=== PATIENT | male | born 1965 | race Caucasian/White ===

== ENCOUNTER → 2018-01-15 | Day surgery (SDC) | payer OTHER ==
[~2018-01-15] MED LIST: GLIM2TAB2 PO; INSU100C SQ; INSU100I13 SQ; INSU100V SQ; IV RINGERS,LACTATED 1000ML 1,000 ML IV SCH; LIDOCAINE 1% PF 2 ML VIAL. ID PRN; METF10007 PO; MIDAZOLAM HCL/PF 2 MG/2 ML VIAL. IV PRN; PROPOFOL 20 ML IV ONE; SIMV20TA3 PO; fentaNYL PF VIAL 100 MCG/2 ML VIAL IV PRN
--- NOTE | 2018-01-15 09:47 | PDOC1 ---
HISTORY & PHYSICAL H&P Arsenio Hernandez [id number] 1965 01/09/2018 11:00 AM 04/09 [facility], [facility] OUR PATIENTS COME FIRST [address] [place] [address] Ph. [phone] Patient: Arsenio Hernandez Date of : 1965 Date: 01/09/2018 11:00 AM Visit Type: Consult This 52 year old male presents for Screening colonoscopy. History of Present Illness: 1. Screening colonoscopy No prior screening. Denies risk factors. Pertinent negatives include abdominal pain, change in bowel habits, change in stool caliber, constipation, decreased appetite, diarrhea, melena, nausea, rectal bleeding, vomiting, weight gain and weight loss. Additional information: No family history of colon cancer , No family history of Crohn's/colitis and No NSAID/ASA use. INTAKE COMMENTS: Intake Comments: patient states he is here for a colonoscopy PAST MEDICAL/SURGICAL HISTORY (Detailed) Disease/disorder Onset Date Management Date Comments Hernia repair Diabetes type 2 gallbladder High cholesterol Hypertension Family History (Detailed) Relationship Family Member Name Age at Condition Onset Age Cause of Father Diabetes mellitus type 2 N Mother Hypertension N Social History: (Detailed) Preferred language is Slovak. Tobacco use status: Ex-cigarette smoker. Smoking status: Former smoker. ALCOHOL There is a history of alcohol use. Type: Wine. 1 drink consumed socially. Last alcoholic drink was last month. CAFFEINE The patient uses caffeine: coffee and soda. - 32 oz a day. Medications (active prior to today) Medication Name Sig Description Start Date Stop Date Refilled Rx Elsewhere glimepiride 4 mg tablet take 1 tablet by oral route 2 times every day 2017 N metformin 1,000 mg tablet take 1 tablet by oral route 2 times every day with morning and evening meals 10/31/2017 N lisinopril 10 mg tablet take 1 tablet by oral route every day 10/31/2017 N simvastatin 20 mg tablet take 1 tablet by oral route every day in the evening 10/31/2017 N Aspir-81 81 mg tablet,delayed release take 1 tablet by oral route every day N Neosporin (ono-fnc-iigag) 3.5 mg-400 unit-5,000 unit/gram top ointment tid 10/31 N BD Ultra-Fine Tami Pen Needle 32 gauge x 5/32" qid 11/14/2017 N Apidra SoloStar U-100 Insulin 100 unit/mL subcutaneous pen 10 u tid 12/14/2017 01/09/2018 01/09/2018 N Soliqua 100/33 100 unit-33 mcg/mL subcutaneous insulin pen inject by subcutaneous route as per insulin protocol 12/14/2017 01/09/2018 01/09/2018 N Riddle 5 mg-325 mg tablet take 1 tablet by oral route every 6 hours as needed for pain 12/14/2017 01/09/2018 01/09/2018 N Medication Reconciliation Medications reconciled today. Medication Reviewed Adherence Medication Name Sig Desc Elsewhere Status taking as directed glimepiride 4 mg tablet take 1 tablet by oral route 2 times every day N Verified taking as directed metformin 1,000 mg tablet take 1 tablet by oral route 2 times every day with morning and evening meals N Verified taking as directed lisinopril 10 mg tablet take 1 tablet by oral route every day N Verified taking as directed simvastatin 20 mg tablet take 1 tablet by oral route every day in the evening N Verified taking as directed Aspir-81 81 mg tablet,delayed release take 1 tablet by oral route every day N Verified taking as directed Neosporin (ref-lop-vqtpy) 3.5 mg-400 unit-5,000 unit/gram top ointment tid N Verified taking as directed BD Ultra-Fine Tami Pen Needle 32 gauge x 5/32" qid N Verified taking as directed Apidra SoloStar U-100 Insulin 100 unit/mL subcutaneous pen 10 u tid N Verified taking as directed Soliqua 100/33 100 unit-33 mcg/mL subcutaneous insulin pen inject by subcutaneous route as per insulin protocol N Verified taking as directed Riddle 5 mg-325 mg tablet take 1 tablet by oral route every 6 hours as needed for pain N Verified Medications (Added, Continued or Stopped today) Start Date Medication Directions PRN Status PRN Reason Instruction Stop Date 12/14/2017 Apidra SoloStar U-100 Insulin 100 unit/mL subcutaneous pen 10 u tid N 01/09/2018 01/09/2018 Apidra SoloStar U-100 Insulin 100 unit/mL subcutaneous pen 16 u tid N Kat saraviayoseph brand 10/31/2017 Aspir-81 81 mg tablet,delayed release take 1 tablet by oral route every day N 11/14/2017 BD Ultra-Fine Tami Pen Needle 32 gauge x 5/32" qid N 10/31/2017 glimepiride 4 mg tablet take 1 tablet by oral route 2 times every day N 10/31/2017 lisinopril 10 mg tablet take 1 tablet by oral route every day N 10/31/2017 metformin 1,000 mg tablet take 1 tablet by oral route 2 times every day with morning and evening meals N 10/31/2017 Neosporin (qsc-ygm-tahra) 3.5 mg-400 unit-5,000 unit/gram top ointment tid N 01/09/2018 Riddle 5 mg-325 mg tablet take 1 tablet by oral route every 6 hours as needed for pain N 12/14/2017 Riddle 5 mg-325 mg tablet take 1 tablet by oral route every 6 hours as needed for pain N 01/09/2018 10/31/2017 simvastatin 20 mg tablet take 1 tablet by oral route every day in the evening N 12/14/2017 Soliqua 100/33 100 unit-33 mcg/mL subcutaneous insulin pen inject by subcutaneous route as per insulin protocol N 01/09/2018 01/09/2018 Soliqua 100/33 100 unit-33 mcg/mL subcutaneous insulin pen inject by subcutaneous route as per insulin protocol 30 u at hs N Allergies: Ingredient Reaction (Severity) Medication Name Comment NO KNOWN ALLERGIES Review of Systems System Neg/Pos Details Constitutional Negative Chills, Fever, Malaise, Weight gain and Weight loss. ENMT Negative Sore throat. Eyes Negative Double vision. Respiratory Negative Dyspnea and Wheezing. Cardio Negative Chest pain and Irregular heartbeat/palpitations. GI Positive See HPI. GI Negative Abdominal pain, Change in bowel habits, Change in stool caliber, Constipation, Decreased appetite, Diarrhea, Melena, Nausea, See HPI, Rectal bleeding and Vomiting. Negative Dysuria and Hematuria. Endocrine Negative Cold intolerance and Heat intolerance. Psych Negative Anxiety. Integumentary Negative Hives and Rash. MS Negative Joint pain. Christofer/Lymph Negative Easy bleeding and Easy bruising. Allergic/Immuno Negative Food allergies. Vital Signs Time BP mm/Hg Pulse /min Resp /min Temp F Ht ft Ht in Ht cm Wt lb Wt kg BMI kg/ m2 BSA m2 O2 Sat% 11:10 AM 110/60 113 16 98.2 5.0 10.00 177.80 288.60 130.907 41.41 2.54 98 Measured By Time Measured by 11:10 AM Jada Swygert PHYSICAL EXAM: Exam Findings Details Constitutional Normal Well developed. Eyes Normal Conjunctiva - Right: Normal, Left: Normal. Sclera - Right: Normal, Left: Normal. Nasopharynx Normal Lips/teeth/gums - Normal. Neck Exam Normal Inspection - Normal. Thyroid gland - Normal. Respiratory Normal Inspection - Normal. Auscultation - Normal. Cardiovascular Normal Regular rate and rhythm. No murmurs, gallops, or rubs. Abdomen Normal Inspection - Normal. Anterior palpation - No guarding. No abdominal tenderness. No hepatic enlargement. No spleen enlargement. No hernia. No ascites. Skin Normal Inspection - Normal. Extremity Normal No edema. Psychiatric Normal Orientation - Oriented to time, place, person & situation. Appropriate mood and affect. Assessment/Plan # Detail Type Description 1. Assessment Encounter for screening colonoscopy (Z12.11). Patient Plan schedule colonoscopy at [facility] [place] Provider Plan Following items have been discussed with the patient if applicable. _x__Patient was advised about the liquid diet carefully. _x__Diabetic medication: Do not take following medication on the preparation day - glimipride, metformin. _x__Insulin: Reduce or eliminate your insulin as follows- do not take Regular insulin (Apidra)if bs is less then 150. Do not take long acting insulin (soliqua ) in the evening. _x__Blood thinner: Do not take following blood thinner as follows-aspirin for 48 hrs before. _x__Other medication: Continue all other medication on the day of preparation. ___BP medication: Take following BP meds on the day of the procedure at 5:30 AM. with just a sip of water-but do not drink lot of water because this will delay your procedure for anesthesia related issue.- Plan Orders Further diagnostic evaluations ordered today include(s) Colonoscopy , flexible; diagnostic to be performed today. He is to schedule a follow-up visit with Gilberto Farmer MD upon completion of work-up. Document Electronically signed: Gilberto Farmer MD 01/09/2018 12:55 PM Document generated by: Gilberto Farmer 01/09/2018 Haylee Ortiz MD, Family Practice; Hector Stewart MD Internal Medicine; Fortunato Feldman MD, Internal Medicine; Tremayne Farmer MD Internal Medicine; Gilberto Farmer MD, Gastroenterology; Eddie Hampton MD, Rheumatology, Naomy Woodruff APRN ------ 01/15/18 Patient seen and examined. No change in H&P. GILBERTO FARMER MD Jan 15, 2018 09:47
[2018-01-15 10:58] VITALS: BP 135/56
== END | disposition home or self-care (01) ==
LOC: SURG 09:36
PROVIDERS: ATTEND Internal Medicine Gastroenterology
DX: Z12.11 Encounter for screening for malignant neoplasm of colon (principal); I10 Essential (primary) hypertension; E11.9 Type 2 diabetes mellitus without complications; E78.00 Pure hypercholesterolemia, unspecified; Z98.890 Other specified postprocedural states; Z83.3 Family history of diabetes mellitus; Z82.49 Family history of ischemic heart disease and other diseases of the circulatory system; Z87.891 Personal history of nicotine dependence; Z72.89 Other problems related to lifestyle; Z79.899 Other long term (current) drug therapy; Z79.84 Long term (current) use of oral hypoglycemic drugs; Z79.82 Long term (current) use of aspirin
CPT/HCPCS: 45378; 82962; J2704